=== PATIENT | male | born 1970 | race Caucasian/White ===

== ENCOUNTER 2018-10-13 21:52 | Emergency (ER) | payer OTHER ==
--- NOTE | 2018-10-13 21:57 | EDPHY ---
H & P Stated Complaint: R side chest pain, after dinner Time Seen by Provider: 10/13/18 21:56 HPI/ROS: HPI CHIEF COMPLAINT: Chest pain. HISTORY OF PRESENT ILLNESS: 48-year-old male presents emergency room with chest pain. Patient states this started approximately 2 hr ago. Shortly after eating dinner. He was out at a restaurant had steak. He states approximately 30 min after eating he developed right-sided chest pain sharp stabbing worse when he takes deep breath in. No abdominal pain no nausea vomiting. Continues to have pain worse when he takes a deep breath in. It is now moved from the right side of his chest more into the substernal region. Denies any shortness of breath but does state it hurts when he takes a deep breath in. He denies any injury does state that he did overhead presses yesterday. At times he does state it hurts worse when he goes to lay back. No fever. No cough, no productive sputum. Complains of sharp stabbing pain worse when he takes deep breath in. Past Medical History: Denies medical history Past Surgical History: Neck surgery Social History: Occasional alcohol use, denies drugs or alcohol. Family History: Denies family history of cardiovascular disease. ROS REVIEW OF SYSTEMS: 10 Systems were reviewed and negative with the exception of the elements mentioned in the history of present illness. Exam Constitutional appears well nontoxic triage nursing summary reviewed, vital signs reviewed, awake/alert. Vital signs stable. Eyes normal conjunctivae and sclera, EOMI, PERRLA. HENT normal inspection, atraumatic, moist mucus membranes, no epistaxis, neck supple/ no meningismus, no raccoon eyes. Respiratory clear to auscultation bilaterally, normal breath sounds, no respiratory distress, no wheezing. Cardiovascular rate normal, regular rhythm, no murmur, no edema, distal pulses normal. Gastrointestinal soft, non-tender, no rebound, no guarding, normal bowel sounds, no distension, no pulsatile mass. Genitourinary no CVA tenderness. Musculoskeletal no midline vertebral tenderness, full range of motion, no calf swelling, no tenderness of extremities, no meningismus, good pulses, neurovascularly intact. Skin pink, warm, & dry, no rash, skin atraumatic. Neurologic awake, alert and oriented x 3, AAOx3, moves all 4 extremities equally, motor intact, sensory intact, CN II-XII intact, normal cerebellar, normal vision, normal speech. Psychiatric normal mood/affect. Heme/Lymph/Immune no lymphadenopathy. Differential Diagnosis: Differential diagnosis includes but is not limited to: ACS, atypical chest pain, pneumothorax, pneumonia, pulmonary embolism, aortic dissection, congestive heart failure, tumor, musculoskeletal pain, esophageal pain, GERD, peptic ulcer disease, pancreatitis Medical Decision Making: Plan for this patient GI cocktail to see if this improves his discomfort, chest x-ray two view to rule out pneumothorax, D-dimer to rule out PE, troponin, basic blood work electrolytes and CBC. Re-evaluation: EKG interpretation by me on record in [employer] system. Impression time of EKG 2204, sinus rhythm rate of 79 ST depression noted lead to 3 AVF and specifically V4 V5 V6. No old EKG to compare this to. 2311: Patient received a GI cocktail continues to have chest pain it did not help. He had a repeat EKG that shows worsening ST depression to 3 AVF, V4 V5 V6. No ST elevation. Given this worsening EKG and ongoing chest pain I have ordered him full-dose aspirin and nitroglycerin. Will send a 2nd troponin. EKG interpretation by me on record in [employer] system. Impression time of EKG 2306, sinus rhythm rate of 93, ST depression V4 V5 V6 to 3 AVF seen on previous EKG but worse. 2320: Patient re-evaluated after nitroglycerin this did bring his chest pain down from 9 attend 8 of 10. Will give a 2nd dose additionally morphine. 2344: Patient re-evaluated continues to have chest pain. 04/08 currently. Somewhat improved with nitroglycerin. Will repeat his EKG and troponin Will consult Cardiology. Will placed on nitroglycerin drip to ongoing chest pain. Watch blood pressure closely. Patient also getting 2 L of fluid. 2350: I have consult Cardiology Dr. Amado, discussed case in detail agrees with nitroglycerin drip and heparin. He has reviewed the patient's EKG. I repeat his EKG a 3rd time to make sure there is no progression time of repeat EKG 2347 sinus rhythm rate of [address] depression to 3 AVF V4 V5 V6 but no ST elevation. 2351: Patient being started on nitroglycerin and heparin. Blood pressure checked in both arms left 127/62, right 134/74 Given the patient's having ongoing chest pain with an abnormal EKG I am concerned about a non-STEMI I have consult Cardiology Dr. Amado, who is reviewed the patient's EKGs. Agrees with current plan of nitroglycerin drip and heparin. I have consult the hospitalist service Dr. Lino who agrees to admit. Admit to PCU heparin and nitroglycerin drip. Troponins have been negative so far. However patient has ongoing chest pain. Abnormal EKG. HEART Score for Major Cardiac Events from [employer] on 10/13/2018 All calculations should be rechecked by clinician prior to use RESULT SUMMARY: 3 points Low Score (0-3 points) Risk of MACE of 0.9-1.7%. INPUTS: History > 1 = Moderately suspicious EKG > 1 = Non-specific repolarization disturbance Age > 1 = 45-64 Risk factors > 0 = No known risk factors Initial troponin > 0 = normal limit 1225AM: Patient updated agrees for hospital admission. Chest pain much improved after nitroglycerin drip. Hospitalist service consult to Dr. Lino. Source: Patient - Personal History Current Tetanus Diphtheria and Acellular Pertussis (TDAP): Yes - Medical/Surgical History Hx Asthma: No Hx Chronic Respiratory Disease: No Hx Diabetes: No Hx Cardiac Disease: No Hx Renal Disease: No Hx Cirrhosis: No Hx Alcoholism: No Hx HIV/AIDS: No Hx Splenectomy or Spleen Trauma: No Other PMH: Denies - Social History Smoking Status: Never smoked Constitutional: Initial Vital Signs Temperature (C) 37.0 C 10/13/18 21:53 Heart Rate 79 10/13/18 21:53 Respiratory Rate 19 10/13/18 21:53 Blood Pressure 129/83 H 10/13/18 21:53 O2 Sat (%) 97 10/13/18 21:53 O2 Delivery Mode Room Air Allergies/Adverse Reactions: erythromycin base Allergy (Verified 10/14/18 08:52) Rash Home Medications: Medication Instructions Recorded Colchicine [Colcrys] 0.6 mg PO BID 30 Days #60 tablet 10/14/18 Ibuprofen 800 mg PO TID 30 Days #90 tablet 10/14/18 Ranitidine HCl 150 mg PO BID 30 Days #60 tablet 10/14/18 Medical Decision Making - Data Points Laboratory Results: Laboratory Results 10/13/18 22:10 10/13/18 22:10 Medications Given: Aspirin (Aspirin) 325 mg PO DAILY MISA Stop: 04/12/19 08:59 Last Admin: 10/14/18 09:40 Dose: 325 mg Heparin Sodium (Porcine) (Heparin Injection) 0 unit IVP PRN PRN PRN Reason: re-Boluses required by protcol Stop: 04/12/19 06:40 Last Admin: 10/14/18 06:50 Dose: 2,150 units Nitroglycerin/Dextrose (Nitroglycerin 200 Mcg/Ml (Premix)) 250 mls @ 0 mls/hr IV CONT MISA; Titrate PRN Reason: Protocol Stop: 04/11/19 23:44 Last Admin: 10/14/18 00:12 Dose: 250 mls Discontinued Medications Al Hydroxide/Mg Hydroxide (Maalox Susp) 30 ml PO ONCE ONE Stop: 10/13/18 22:04 Last Admin: 10/13/18 22:19 Dose: 30 ml Aspirin (Aspirin) 325 mg PO EDNOW ONE Stop: 10/13/18 23:03 Last Admin: 10/13/18 23:06 Dose: 325 mg Hydromorphone HCl (Dilaudid) 1 mg IVP EDNOW ONE Stop: 10/13/18 23:45 Last Admin: 10/13/18 23:58 Dose: 1 mg Hydromorphone HCl (Dilaudid) 1 mg IVP EDNOW ONE Stop: 10/14/18 03:55 Last Admin: 10/14/18 03:58 Dose: 1 mg Hyoscyamine Sulfate (Levsin, Hyomax-Sl) 0.25 mg PO ONCE ONE Stop: 10/13/18 22:04 Last Admin: 10/13/18 22:19 Dose: 0.25 mg Sodium Chloride (Ns) 1,000 mls @ 0 mls/hr IV EDNOW ONE; Wide Open PRN Reason: Protocol Stop: 10/13/18 22:03 Last Admin: 10/13/18 22:14 Dose: 1,000 mls Sodium Chloride (Ns) 1,000 mls @ 0 mls/hr IV ONCE ONE PRN Reason: Wide Open Stop: 10/13/18 23:32 Last Admin: 10/13/18 23:32 Dose: 1,000 mls Heparin Sodium (Porcine) (Heparin 50 Units/Ml (Premix)) 500 mls @ 0 mls/hr IV EDNOW ONE PRN Reason: As Directed Stop: 10/13/18 23:55 Last Admin: 10/14/18 00:12 Dose: 500 mls Lidocaine (Lidocaine 2% Viscous) 15 ml PO ONCE ONE Stop: 10/13/18 22:04 Last Admin: 10/13/18 22:18 Dose: 15 ml Morphine Sulfate (Morphine) 6 mg IVP EDNOW ONE Stop: 10/13/18 23:21 Last Admin: 10/13/18 23:25 Dose: Not Given Morphine Sulfate (Morphine) 4 mg IVP EDNOW ONE Stop: 10/13/18 23:24 Last Admin: 10/13/18 23:24 Dose: 4 mg Nitroglycerin (Nitrostat) 0.4 mg SL EDNOW ONE Stop: 10/13/18 23:03 Last Admin: 10/13/18 23:06 Dose: 0.4 mg Point of Care Test Results: Chemistry 10/13/18 10/13/18 10/13/18 23:53 23:17 22:19 POC Troponin I 0.00 ng/mL ng/mL 0.00 ng/mL ng/mL 0.00 ng/mL ng/mL (0.00-0.08) (0.00-0.08) (0.00-0.08) Departure - Departure Disposition: [facility] Inpatient Acute Clinical Impression: Chest pain Qualifiers: Chest pain type: unspecified Qualified Code(s): R07.9 - Chest pain, unspecified Condition: Good
[2018-10-13] MEDS ORDERED: NS 1,000 ML IV ONE ×2 (22:02→23:31)
[2018-10-13] MEDS ORDERED: LIDOCAINE 2% VISCOUS 15 ML UDCUP PO ONE (22:03)
[2018-10-13] MEDS ORDERED: MAG HYDROX/AL HYDROX/SIMETH 30 ML UDCUP PO ONE (22:03)
[2018-10-13] MEDS ORDERED: HYOSCYAMINE SULFATE 0.125 MG TAB PO ONE (22:03)
[2018-10-13 22:25] LABS: PLATELET COUNT 262 10^3/uL (150-400)
[2018-10-13 22:35] LABS: INR 0.92 (0.83-1.16); PROTIME(PATIENT) 12.6 SEC (12.0-15.0)
[2018-10-13] MEDS ORDERED: ASPIRIN 325 MG TAB PO ONE (23:02)
[2018-10-13] MEDS ORDERED: NITROGLYCERIN 0.4 MG BTL SL ONE (23:02)
[2018-10-13] MEDS ORDERED: ASPIRIN 81 MG CHEWABLE TAB ONE (23:03)
[2018-10-13] MEDS ORDERED: HYDROmorphONE/DILAUDID 2 MG/ML INJ IVP ONE (23:44)
[2018-10-13] MEDS ORDERED: NITROGLYCERIN/DEXTROSE 250 ML IV SCH (23:45)
[2018-10-13] MEDS ORDERED: HEPARIN/DEXTROSE 500 ML IV ONE (23:54)
[2018-10-13] MEDS ORDERED: ONDANSETRON DISINTEGRATING 4 MG TAB PO PRN (23:55)
[2018-10-13] MEDS ORDERED: ONDANSETRON 4 MG/2 ML VIAL IVP PRN (23:55)
[2018-10-13] MEDS ORDERED: ACETAMINOPHEN 325 MG TAB PO PRN (23:55)
--- NOTE | 2018-10-14 02:43 | GHP ---
DATE OF ADMISSION: 10/13/2018 CHIEF COMPLAINT: Chest pain. HISTORY OF PRESENT ILLNESS: A 48-year-old male with no significant past medical history visitig here from [place] for work presents with chest pain. Pain started 2 hours ago an hour after eating a steak dinner. Pain started under right pectoral muscle and radiated to middle. 10/10 stabbing sensation worse with deep with clamminess and mild SOB. No radiation to the arm, neck, jaw, or back. No F/C/S or cough. Had the stomach flu last week for a day. No pain relief with GI cocktail, but down to 5 with nitro. Lifts weights 3 times a week for an hour with no chest pain or shortness of breath. REVIEW OF SYSTEMS: I completed a 10-point review of systems, negative except as noted in HPI. PAST MEDICAL HISTORY: Spasmodic dysphonia. PAST SURGICAL HISTORY: Neck surgery. FAMILY HISTORY: Minor stroke mother, father with diabetes. SOCIAL HISTORY: Lives in [place]. Works for an [employer] company. Drinks 3-4 alcoholic drinks a week. No tobacco or illicits. ALLERGIES: None. HOME MEDICATIONS: None. PHYSICAL EXAM: Temperature 36.5, blood pressure 129/88, heart rate in the 90s, respirations 18, 94% on room air. GENERAL: Well appearing, no acute distress. Mildly pale. HEENT: PERRLA. Moist mucous membranes. CV: Regular rate and rhythm. No murmurs, gallops, or rubs. No lower extremity edema. LUNGS: Clear. No crackles or wheezing. ABDOMEN: Soft, nontender, nondistended. Positive bowel sounds. : No [place]. MUSCULOSKELETAL: 5/5 upper and lower extremity strength. No reproducible chest pain. NEUROLOGIC: 2 through 12 intact. PSYCHIATRIC: Alert and oriented x3. LABS: WBC 12, hemoglobin 13, hematocrit 40, platelets 262. D-dimer negative. Coags negative. Sodium 138, potassium 4.1, chloride 100, carbon dioxide 28, creatinine 1.1. Unknown baseline hematocrit. Glucose 96. LFTs within normal. Lipase normal. Troponin 0.03 x3. Chest x-ray personally reviewed by me. No effusion or opacity. EKG personally reviewed by me. ST depression in lead 1, aVL, V4 through V6. ASSESSMENT AND PLAN: 1. Chest pain: EKG concerning with ST depressions. Dr. Smallwood spoke with Dr. Amado who reviewed his EKGs who agreed with nitroglycerin drip and heparin. Cardiology to consult in the morning. Check lipids, A1c and drug screen. Control pain with IV morphine. May warrant cardiac catheterization in the morning if pain is persistent. 2. Diet: N.p.o. 3. Deep vein thrombosis prophylaxis: On heparin drip. 4. Disposition: Warrants observation admission given ongoing chest pain, concern for acute coronary syndrome, warranting IV nitroglycerin and heparin. /[id number]/MODL MTDD
[2018-10-14] MEDS ORDERED: HYDROmorphONE/DILAUDID 1 MG/ML INJ IVP ONE (03:54)
[2018-10-14 06:22] LABS: PLATELET COUNT 240 10^3/uL (150-400)
[2018-10-14] MEDS ORDERED: HEPARIN 10,000 UNIT/10 ML MDV (1,000 UNIT/ML) IVP PRN (06:41)
[2018-10-14] MEDS ORDERED: HEPARIN/DEXTROSE 500 ML IV SCH (06:45)
[2018-10-14] MEDS ORDERED: HEPARIN 10,000 UNIT/10 ML MDV (1,000 UNIT/ML) ONE (06:49)
[2018-10-14 07:16] LABS: INR 0.99 (0.83-1.16); PROTIME(PATIENT) 13.3 SEC (12.0-15.0)
--- NOTE | 2018-10-14 07:47 | CPEKG ---
Test Reason : OPEN Blood Pressure : / mmHG Vent. Rate : 079 BPM Atrial Rate : 079 BPM P-R Int : 134 ms QRS Dur : 091 ms QT Int : 387 ms P-R-T Axes : 090 069 050 degrees QTc Int : 444 ms Sinus rhythm Minimal ST depression, diffuse leads Confirmed by Tony Smallwood ([id number]) on 10/14/2018 7:47:12 AM Referred By: Confirmed By:Tony Smallwood
--- NOTE | 2018-10-14 07:48 | CPEKG ---
Test Reason : OPEN Blood Pressure : / mmHG Vent. Rate : 093 BPM Atrial Rate : 093 BPM P-R Int : 176 ms QRS Dur : 087 ms QT Int : 385 ms P-R-T Axes : 097 062 069 degrees QTc Int : 479 ms Sinus rhythm Borderline ST depression, anterolateral leads Borderline prolonged QT interval Confirmed by Tony Smallwood ([id number]) on 10/14/2018 7:47:12 AM Referred By: Confirmed By:Tony Smallwood
--- NOTE | 2018-10-14 07:48 | CPEKG ---
Test Reason : OPEN Blood Pressure : / mmHG Vent. Rate : 082 BPM Atrial Rate : 083 BPM P-R Int : 151 ms QRS Dur : 091 ms QT Int : 498 ms P-R-T Axes : 096 061 065 degrees QTc Int : 582 ms Sinus rhythm Minimal ST depression, lateral leads Prolonged QT interval Confirmed by Tony Smallwood ([id number]) on 10/14/2018 7:47:13 AM Referred By: Confirmed By:Tony Smallwood
[2018-10-14] MEDS ORDERED: ATORVASTATIN CALCIUM 40 MG TAB PO SCH (09:00)
[2018-10-14] MEDS ORDERED: ASPIRIN 325 MG TAB PO SCH (09:00)
--- NOTE | 2018-10-14 14:06 | GCON ---
CARDIOLOGY CONSULTATION DATE OF CONSULTATION: 10/14/2018 REASON FOR CONSULTATION: Chest pain. 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 while having dinner of right-sided, intense, sharp, 7/10 ch est pain. He states that he stayed at home for approximately an hour and a half after the onset of p ain. He reports his pain intensified up to a 10/10, prompting his evaluation at [facility]. He also states at that time that the pain radiated from the right chest to the center of his chest, prompting him to present for further evaluation. His initial ECG at 2155 demonstrated sinus rhythm at 79 beats per minute, with minimal diffuse ST-seg ment depression. Followup ECGs demonstrated normal sinus rhythm, with no evidence of ST-segment jack ges. His initial troponin on presentation was unremarkable. The patient describes his pain as respirophasic, worse with deep inspiration. He also describes his pain as markedly more severe with lying down and improved with sitting up and leaning forward. He describes a recent history of a GI viral illness syndrome last week, associated with fevers and ch ills. He had an upper respiratory infection approximately 6 weeks earlier. Currently, at the time of my exam, he appears to be resting comfortably. However, he describes subst ernal chest pain of 5/10 ongoing. He has undergone serial troponins x3 since his admission, all of which have been negative. Chest x-ray is unremarkable. Most recent ECG demonstrates sinus rhythm at 92 beats per minute, with normal intervals, normal axis, and no ST-segment changes. PAST MEDICAL HISTORY: Only notable for spasmodic dysphonia, status post surgical correction. MEDICATIONS: He is on no medications. ALLERGIES: He has no allergies to medications. FAMILY HISTORY: He has no family history of premature coronary artery disease. His parents are aliv e and well. He has 2 siblings who are alive and well. SOCIAL HISTORY: He is . He has no children. He works for [employer]. He is a nonsmoker. H e drinks 3-4 alcoholic beverages per week. He exercises regularly with spinning classes and weightli fting. PHYSICAL EXAMINATION: GENERAL: He is awake, alert, oriented, appropriate, and resting comfortably d espite his complaint of 5/10 chest pain. VITAL SIGNS: His vital signs demonstrate blood pressure of 127/73, heart rate of 95, in sinus rhythm, oxygen saturation 95% on room air, temperature 36.5. The re is no evidence of JVP or carotid bruits. CARDIAC: S1, S2. Regular rate and rhythm. No murmurs, rubs, or gallops. ABDOMEN: Soft, nontender, nondistended. There is no pulsatile mass or abdominal bruit. LUNGS: Clear to auscultation bilaterally. There is no evidence of cyanosis, clubbing or lj ma. LABORATORY DATA: White blood cell count 13.01, with elevated neutrophil count of 85.3, hemoglobin of 11.5, and hematocrit of 33.9, platelets of 240. Of note, initial white blood cell count on admissio n of 12.23. Initial hemoglobin of 13.5 has trended down to 11.5. D-dimer negative at 0.36. Troponins negative x3. Urine drug screen negative. Lipid profile demonstrates total cholesterol of 128, triglycerides of 54, HDL 54, and LDL of 63. He is on no statin medication. Since his arrival to [facility], he had been given nitroglycerin. He states the nitr oglycerin has not changed his pain. He has been given Maalox with no pain. He states that morphine is the only thing that has provided him relief at this time. IMPRESSION: 1. Pleuritic respirophasic chest pain, which is positional, worse with lying down, improved with sit ting up. 2. History of recent viral gastrointestinal illness with fevers and chills. 3. Pericarditis. Impression: The patient is a pleasant 48-year-old gentleman with a history of febrile gastrointestin al illness 1 week ago with acute onset of chest pain last evening that has persisted throughout the c ourse of his hospitalization. Troponins are negative x3. No ischemic ECG changes. His symptoms and history are suggestive of pericarditis. PLAN: 1. Echocardiogram to be performed in the ER. 2. Further workup pending the results of his echocardiogram. /[id number]/MODL
--- NOTE | 2018-10-14 14:43 | ECHO ---
[email or web address] [address] [address] Main: [phone] Fax: Transthoracic Echocardiogram Name: MARY BETH WASHINGTON MR#: [id number] Study Date: 10/14/2018 Study Time: 01:20 PM Date of : 1970 Age: 48 year(s) Height: 177.8 cm (70 in.) Weight: 86.18 kg (190 lb.) BSA: 2.04 m2 Gender: Male Examination: Echo Indication: Chest Pain Image Quality: Excellent Contrast: Requested by: Yonis Garcia BP: 127 mmHg/73 mmHg Heart Rate: Rhythm: Indication: Chest Pain Procedure Staff Skid Strapper: Amie Moore [facility] Reading Physician: Yonis Garcia MD Requesting Provider: Conclusions: Normal size left ventricle. No LV hypertrophy. Global hypercontractility of the left ventricle. The ejection fraction is estimated to be 70-75 %. No regional wall motion abnormality. Normal diastolic LV function. Normal RV function. The left atrium is normal in size. Normal appearing atrial septum. The right atrium is normal in size. The mitral valve is normal in appearance and function. The aortic valve is normal in appearance and function. The tricuspid valve is normal in appearance and function. The pulmonary artery pressure is normal. Trivial anterior pericardial effusion. No echocardiographic evidence of hemodynamic compromise. The pericardial effusion is adjacent to the right ventricle. Measurements: Chambers Valvular Assessment AV/MV Valvular Assessment TV/PV Normal Normal Normal Name Value Range Name Value Range Name Value Range Ao Letty (MM): 3.3 cm (2.2 cm-3.7 AV Vmax: 1.57 m/s (1 m/s-1.7 TR Vmax: 2.70 mm/s ( - ) cm) m/s) TR PGmax: 29 mmHg ( - ) IVSd (2D): 0.5 cm (0.6 cm-1.1 AV maxP mmHg ( - ) syst. PAP: 34 mmHg ( - ) cm) AV meanP mmHg ( - ) LVDd (2D): 5.5 cm (4.2 cm-5.9 MV E Vmax: 0.61 m/s ( - ) cm) MV A Vmax: 0.54 m/s ( - ) LVDs (2D): 3.4 cm (2.1 cm-4 MV E/A: 1.13 ( - ) cm) Patient: MARY BETH WASHINGTON Study Date: 10/14/2018 Page 1 of 2 01:20 PM LVPWd (2D): 0.7 cm (0.6 cm-1 cm) LVEF (BP): 73 % (>=55 %) EF Range: 70-75 % Continued Measurements: Chambers Valvular Assessment AV/MV Valvular Assessment TV/PV Name Value Name Value Name Value LADs: 3.7 cm MV E/E' Septal: 5.60 CVP (est.): 5 mmHg LADs Lon.0 cm MV E/E' Lateral: 5.10 LA Area: 22.3 cm2 LA Volume: 63 ml LA Volume Index: 30.9 ml/m2 Additional Vessels Name Value Ao Ascendin.2 cm Findings: Left Ventricle: Normal size left ventricle. No LV hypertrophy. Global hypercontractility of the left ventricle. The ejection fraction is estimated to be 70-75 %. No regional wall motion abnormality. Normal diastolic LV function. Right Ventricle: Normal size right ventricle. Normal RV function. Left Atrium: The left atrium is normal in size. Normal appearing atrial septum. Right Atrium: The right atrium is normal in size. Mitral Valve: The mitral valve is normal in appearance and function. Trivial mitral valve regurgitation. Aortic Valve: The aortic valve is normal in appearance and function. The aortic valve is tri-leaflet. Tricuspid Valve: The tricuspid valve is normal in appearance and function. Mild tricuspid regurgitation is present. The pulmonary artery pressure is normal. Pulmonic Valve: The pulmonic valve is normal in appearance and function. Aorta: The aorta is normal. IVC: The IVC is normal sized. Pericardium: Trivial anterior pericardial effusion. No echocardiographic evidence of hemodynamic compromise. The pericardial effusion is adjacent to the right ventricle. (No Signature Object) Patient: MARY BETH WASHINGTON Study Date: 10/14/2018 Page 2 of 2 01:20 PM [id number]
[2018-10-14 16:17] VITALS: BP 135/67
--- NOTE | 2018-10-14 22:22 | PDDCSUM ---
Discharge Summary Discharge Summary: patient is a 48 year old male with chest pain. ECG showed some diffuse ST depression. he was started on nitro and heparin. Cardiology was consulted. Echo was obtained. Cardiology felt that his presentation and Echo and ECG all were consistent with pericarditis. HE was started on ibuprofen and colchicine and discharged to follow up with cardiology and his PCP Discharge diagnosis- Pericarditis Chest pain New medications Advil 800 TID with taper Colchicine 0.6 bid I spent over 35 minutes on discussing discharge, planning, and arranging follow up [facility] patient.
== END 2018-10-14 16:26 | disposition still patient (30) ==
LOC: UNDOADMOB 23:55
DX: I31.9 Disease of pericardium, unspecified (principal); R07.9 Chest pain, unspecified; E86.9 Volume depletion, unspecified
CPT/HCPCS: 80307; 84484-ER; 85520-90; 96365; 96366; G0480; J1170; J1644; J2270